=== PATIENT | female | born 1985 ===

== ENCOUNTER 2018-05-11 00:27 | Emergency (ER) | payer OTHER ==
[~2018-05-11] VITALS: Ht 167.6 cm; Wt 77.1 kg
[2018-05-11] MEDS ORDERED: LORazepam 0.5mg tab ORAL ONE (00:45)
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
[2018-05-11] MEDS ORDERED: NAPROXEN375 M2 ORAL (01:47)
[2018-05-11 01:51] VITALS: BP 116/74
[2018-05-11 01:52] VITALS: BP 116/74
== END 2018-05-11 01:55 | disposition home or self-care (01) ==
LOC: EDBD 00:27 → EMR 01:23
DX: S10.91XA Abrasion of unspecified part of neck, initial encounter (principal); S20.419A Abrasion of unspecified back wall of thorax, initial encounter; S40.819A Abrasion of unspecified upper arm, initial encounter; S80.819A Abrasion, unspecified lower leg, initial encounter; S40.029A Contusion of unspecified upper arm, initial encounter; S80.10XA Contusion of unspecified lower leg, initial encounter; S20.229A Contusion of unspecified back wall of thorax, initial encounter; S10.93XA Contusion of unspecified part of neck, initial encounter; Y04.2XXA Assault by strike against or bumped into by another person, initial encounter; Y92.9 Unspecified place or not applicable; Y99.8 Other external cause status
CPT/HCPCS: 99284